=== PATIENT | male | born 1960 | race Caucasian/White ===

== ENCOUNTER 2020-06-11 07:32 | Outpatient (REF) | payer OTHER, SELFPAY | END 2020-06-11 07:33 | disposition home or self-care (01) | LOC: HO.LAB 07:32 | PROVIDERS: Visit Provider Internal Medicine | DX: Z20.822 Contact with and (suspected) exposure to COVID-19 (principal) | CPT/HCPCS: C9803; U0003; U0005 ==

== ENCOUNTER 2020-11-29 07:22 | Outpatient (REF) | payer OTHER, SELFPAY ==
[2020-11-29 07:52] LABS: Hematocrit 43.6 % (42-52); Hemoglobin 14.6 g/dl (14.0-18.0); Mean Corpuscular HGB Conc 33.5 g/dl (31.0-36.0); Mean Corpuscular Hemoglobin 29.7 pg (27.0-33.0); Mean Corpuscular Volume 88.6 fL (80-98); Mean Platelet Volume 9.5 fL (9.4-12.4); Platelet Count 280 X10*3/uL (160-400); Red Blood Count 4.92 X10*6/uL (4.60-5.80); Red Cell Distribution Width 12.7 % (11.0-16.0); White Blood Count 6.6 X10*3/uL (4.8-10.8)
[2020-11-29 08:16] LABS: Creatinine Urine 124.97 mg/dL; Microalbum/Creatinine Ratio Ur 18.4 ug/mg cr
[2020-11-29 08:39] LABS: Alanine Aminotransferase 36 U/L (0-40); Albumin Level 4.5 g/dL (3.5-5.0); Alkaline Phosphatase 52 U/L (39-117); Anion Gap 11 (12-20); Aspartate Amino Transferase 23 U/L (5-37); Bilirubin Direct 0.2 mg/dL (0.0-0.5); Bilirubin Total 0.4 mg/dL (0.0-1.0); Blood Urea Nitrogen 15 mg/dL (9-16); Calcium 9.8 mg/dL (8.4-10.2); Carbon Dioxide 28 mmol/L (22-29); Chloride 103 mmol/L (96-108); Cholesterol 211 mg/dL; Estimated Glomerular Filt Rate > 60; Glucose Random 156 mg/dL (60-115); HDL Cholesterol 46 mg/dL; LDL Cholesterol Calculated 148 mg/dl; Potassium 5.1 mmol/L (3.3-5.1); Sodium 137 mmol/L (135-145); Total Protein 7.6 g/dL (6.5-8.0); Triglycerides 89 mg/dL
[2020-11-29 08:55] LABS: Prostate Specific Antigen 3.88 ng/mL (<0.05-4.0)
== END 2020-11-29 07:23 | disposition home or self-care (01) ==
LOC: HO.LAB 07:22
PROVIDERS: PCP Internal Medicine Geriatric Medicine; Visit Provider Internal Medicine Geriatric Medicine
DX: Z00.00 Encounter for general adult medical examination without abnormal findings (principal); Z12.5 Encounter for screening for malignant neoplasm of prostate; E11.9 Type 2 diabetes mellitus without complications; H93.13 Tinnitus, bilateral; Z79.899 Other long term (current) drug therapy
CPT/HCPCS: 36415; 80048; 80061; 80076; 82043; 84153; 85027

== ENCOUNTER 2022-07-26 15:40 | Outpatient (REF) | payer OTHER, SELFPAY ==
--- NOTE | ~2022-07-26 | US_ITS ---
EXAMINATION: US SOFT TISSUE OF THE NECK CLINICAL INFORMATION: Small mass on right parotid gland x3 years. COMPARISON: None available. TECHNIQUE: Linear transducer grayscale and color Doppler examination of the right parotid gland. FINDINGS: A 1.5 x 1.1 x 1.4 cm cystic lesion in the right parotid gland. Small right cervical node which maintains normal hilar architecture not pathologically enlarged measuring 4 mm. US/US soft tiss head and/or neck IMPRESSION: 1. A 1.5 cm cystic lesion in the right parotid gland, for which differential considerations could include a sialocele, benign lymphoepithelial lesion, sequelae of Sjogren's disease or possibly a cystic Warthin's tumor. 2. Small cervical node which maintains normal hilar architecture not pathologically enlarged measuring 4 mm.
== END 2022-07-26 15:41 | disposition home or self-care (01) ==
LOC: HO.US 15:40
PROVIDERS: PCP Internal Medicine Geriatric Medicine; Visit Provider Internal Medicine Geriatric Medicine
DX: K11.8 Other diseases of salivary glands (principal)
CPT/HCPCS: 76536

== ENCOUNTER 2022-10-08 16:39 | Outpatient (REF) | payer OTHER, SELFPAY | END 2022-10-08 16:40 | disposition home or self-care (01) | LOC: HO.HHCL 16:39 | PROVIDERS: Visit Provider Internal Medicine Geriatric Medicine | DX: R30.0 Dysuria (principal) | CPT/HCPCS: 87086 ==

== ENCOUNTER 2023-03-15 10:18 | Outpatient (REF) | payer OTHER, SELFPAY ==
[2023-03-15 11:37] LABS: Appearance Urine Clear; Color Urine Yellow; Glucose Urine UA >=1000 mg/dL (Negative); Leukocyte Esterase Urine Negative (Negative); Nitrite Urine Negative (Negative); Specific Gravity - Urine >= 1.030 (1.005-1.025); UMIC TRIGGER UACC YES; Urine Blood Negative (Negative); Urine Ketones Negative (Negative); Urine Protein Negative (Neg-Trace)
[2023-03-15 11:44] LABS: Bacteria Urine None Seen (None Seen); Hyaline Casts Urine 0-2 /LPF (0-2); RBC Urine 0-2 /HPF (0-2); Squamous Epithelial Cell Urine 0-2 /HPF (0-2); WBC Urine 0-5 /HPF (0-5)
[2023-03-15 12:00] LABS: Anion Gap 10 (12-20); Blood Urea Nitrogen 10 mg/dL (9-16); Calcium 9.2 mg/dL (8.4-10.2); Carbon Dioxide 26 mmol/L (22-29); Chloride 107 mmol/L (96-108); Estimated Glomerular Filt Rate > 60; Glucose Random 146 mg/dL (60-115); Sodium 139 mmol/L (135-145)
== END 2023-03-15 10:19 | disposition home or self-care (01) ==
LOC: HO.HHCL 10:18
PROVIDERS: Visit Provider Internal Medicine Geriatric Medicine
DX: Z12.5 Encounter for screening for malignant neoplasm of prostate (principal); N40.1 Benign prostatic hyperplasia with lower urinary tract symptoms; N39.43 Post-void dribbling; E11.65 Type 2 diabetes mellitus with hyperglycemia
CPT/HCPCS: 36415; 80048; 81001; 84153

== ENCOUNTER 2023-08-27 07:15 | Outpatient (REF) | payer OTHER, SELFPAY ==
[2023-08-27 07:39] LABS: MANUAL DIFF FLAG NO
[2023-08-27 08:16] LABS: Basophils Percent Auto 0.5 % (0-2); Eosinophils Absolute Auto 0.2 X10*3/uL (0.0-0.4); Imm Gran Abs Auto 0.01 X10*3/uL (0.00-0.03); Imm Gran Pct Auto 0.2 % (0.0-0.4); Lymphocytes Absolute Auto 1.9 X10*3/uL (1.2-4.9); Lymphocytes Percent Auto 31.8 % (20-40); Mean Corpuscular HGB Conc 34.1 g/dl (31.0-36.0); Mean Corpuscular Hemoglobin 30.7 pg (27.0-33.0); Mean Platelet Volume 9.1 fL (9.4-12.4); Monocytes Absolute Auto 0.7 X10*3/uL (0.1-1.2); Monocytes Percent Auto 11.5 % (2-11); Neutrophils Absolute Auto 3.1 x10*3/uL (2.0-8.3); Platelet Count 268 X10*3/uL (160-400); Red Blood Count 4.89 X10*6/uL (4.60-5.80); Red Cell Distribution Width 12.9 % (11.0-16.0)
[2023-08-27 08:40] LABS: Creatinine Urine 112.31 mg/dL; Microalbum/Creatinine Ratio Ur 13.3 ug/mg cr (<30)
[2023-08-27 08:54] LABS: Alanine Aminotransferase 20 U/L (0-40); Albumin Level 4.3 g/dL (3.5-5.0); Alkaline Phosphatase 57 U/L (39-117); Anion Gap 12 (12-20); Aspartate Amino Transferase 20 U/L (5-37); Bilirubin Total 0.5 mg/dL (0.0-1.0); Blood Urea Nitrogen 16 mg/dL (9-16); Calcium 9.6 mg/dL (8.4-10.2); Carbon Dioxide 27 mmol/L (22-29); Chloride 107 mmol/L (96-108); Cholesterol 197 mg/dL (<200); Estimated Glomerular Filt Rate > 60; Glucose Random 120 mg/dL (60-115); HDL Cholesterol 56 mg/dL (>40); LDL Cholesterol Calculated 129 mg/dL (<100); Potassium 4.5 mmol/L (3.3-5.1); Sodium 141 mmol/L (135-145); Total Protein 7.3 g/dL (6.5-8.0); Triglycerides 62 mg/dL (<150)
[2023-08-27 09:09] LABS: TSH reflex Free T4 2.28 uIU/mL (0.32-4.0)
[2023-08-27 09:40] LABS: HIV AB/AG Nonreactive (Nonreactive); HIV Num 1 0.05 S/CO (0.00-0.99); ~HepC Num1 0.06 S/CO (0.00-0.79); ~Hepatitis C Antibody Nonreactive (Nonreactive)
== END 2023-08-27 07:16 | disposition home or self-care (01) ==
LOC: HO.LAB 07:15
PROVIDERS: PCP Internal Medicine Geriatric Medicine; Visit Provider Internal Medicine Geriatric Medicine
DX: E11.65 Type 2 diabetes mellitus with hyperglycemia (principal); R63.4 Abnormal weight loss; Z11.59 Encounter for screening for other viral diseases
CPT/HCPCS: 36415; 80053; 80061; 82043; 82570; 84443; 85025; 86803; 87389

== ENCOUNTER 2024-04-21 07:19 | Outpatient (REF) | payer OTHER, SELFPAY ==
--- OUTSIDE RECORDS SUMMARY | 2024-04-21 07:22 | XMS_ITS | Clinical Summary ---
Author Organization [employer] Address [address] [place] [address] [address] [place] [address] Care Team Providers Care Managing Consultant Name Role Phone Name, Chidi NIEVES Primary Care Provider [phone] Allergies No known active allergies Medications sildenafil (Viagra) 50 MG tabletIndicatio ns:Type 2 diabetes mellitus with hyperglycemia, without long-term current use of insulin (CMS/HCC),Erect ile dysfunction, unspecified erectile dysfunction type Take 1 tablet (50 mg) by mouth if needed each day for erectile dysfunction. 10 tablet 01/28/20 22 Active cetirizine (ZyrTEC) 10 MG tablet Take 10 mg by mouth in the morning. Active clotrimazole (Lotrimin) 1 % cream Apply topically every 12 (twelve) hours. 28 g 2 10/09/19 23 Active atorvastatin (Lipitor) 20 MG tabletIndicatio ns:Type 2 diabetes mellitus with hyperglycemia, without long-term current use of insulin (CMS/HCC) TAKE 1 TABLET BY MOUTH EVERY DAY 90 tablet 02/03/20 23 Active brimonidine (AlphaGAN P) 0.2 % ophthalmic solution PONGA DEJA GOTA EN LOS DOS OJOS DOS VECES AL D A 50 each 11 03/14/19 24 Active latanoprost (Xalatan) 0.005 % ophthalmic solution PONGA DEJA GOTA EN LOS DOS OJOS AL ACOSTARSE 25 each 11 03/14/19 24 Active dorzolamide-delon olol (Cosopt) 2-0.5 % ophthalmic solution PONGA DEJA GOTA EN LOS DOS OJOS DOS VECES AL AMANDEEP 30 mL 3 06/01/19 24 Active finasteride (Proscar) 5 MG tabletIndicatio ns:Benign prostatic hyperplasia with post-void dribbling Take 1 tablet (5 mg) by mouth Once per day. Do not crush, chew, or split. 30 tablet 11 12/12/19 24 Active tamsulosin (Flomax) 0.4 MG 24 hr capsuleIndicati ons:Benign prostatic hyperplasia with post-void dribbling Take 2 capsules (0.8 mg) by mouth Once per day. TAKE 2 CAPSULES BY MOUTH ONCE PER DAY. 180 capsule 3 12/13/19 24 Active FREESTYLE LITE test strip TEST ONCE DAILY 100 strip 2 12/29/19 Active Jardiance 25 MG TOME DEJA TABLETA TODOS LOS NASSAR EN LA MANANA 90 tablet 3 04/02/19 25 Active metFORMIN (Glucophage) 1000 MG tabletIndicatio ns:Type 2 diabetes mellitus with hyperglycemia, without long-term current use of insulin (CMS/HCC) TAKE 1 TABLET BY MOUTH WITH BREAKFAST AND EVENING MEAL 180 tablet 3 04/12/19 25 Active clotrimazole (Lotrimin) 1 % cream Apply topically 2 times daily for 28 days. 30 g 5 04/18/19 25 025 Active empagliflozin (Jardiance) 25 MG Take 1 tablet (25 mg) by mouth in the morning. 90 each 3 03/14/19 24 025 Discontinued metFORMIN (Glucophage) 1000 MG tabletIndicatio ns:Type 2 diabetes mellitus with hyperglycemia, without long-term current use of insulin (CMS/HCC) TAKE 1 TABLET BY MOUTH WITH BREAKFAST AND EVENING MEAL 180 tablet 3 04/08/19 24 025 Discontinued fluconazole (Diflucan) 150 MG tablet Take 1 tablet (150 mg) by mouth 1 (one) time for 1 dose. 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 10/27/2016 Pre-diabetes 03/21/2015 Encounters Date Type Department Care Team Description 04/17/2024 4:00 PM EDT Office Visit [facility] [address] [place] [address] NameChidi MD Type 2 diabetes mellitus with hyperglycemia, without long-term current use of insulin ([facility]) (Primary Dx); Balanitis; Pleomorphic adenoma of parotid gland 04/17/2024 Refill [facility] [address] [place] [address] Chidi Aguilar MD Type 2 diabetes mellitus with hyperglycemia, without long-term current use of insulin ([facility]); Erectile dysfunction, unspecified erectile dysfunction type 04/17/2024 Travel 04/11/2024 Refill [facility] [address] [place] [address] Chidi Aguilar MD Type 2 diabetes mellitus with hyperglycemia, without long-term current use of insulin ([facility]/HCC) 04/01/2024 Refill [facility] [address] [place] [address] Chidi Aguilar MD 02/14/2024 Telephone [facility] [address] [place] [address] Braden Diaz [place] mar recalls from Last 3 Months Immunizations Name Administration Dates Next Due Pfizer Covid-19 Vaccine 12+ 06/30/2020, Tdap 10/27/2016 Social History Tobacco Use Types Packs/Day Years Used Date Smoking Tobacco: Never Smokeless Tobacco: Never Tobacco Cessation:Counseling Given: Not Answered Alcohol Use Standard Drinks/Week Comments Never 0 (1 standard drink = 0.6 oz pur e alcohol) Depression Answer Date Recorded Patient Health Questionnaire-9 Score 0 03/14/2023 Patient Health Questionnaire-9 Score 0 03/14/2023 Last PHQ-9: Questionnaire Data Not on file 0 03/14/2023 Housing Stability Answer Date Recorded What is your housing situation today? I have caroline goode 03/14/[address] you li ve. Do you have problems with any of the following? None of the above 03/14/2023 Food Insecurity Answer Date Recorded Within the past 12 months, y ou worried that your food would run out before you got money to buy more: Never True 03/14/2023 Within the past 12 months,th e food you bought just didn't last and you didn't have enough money to get more: Never True 06/2023 Transportation Answer Date Recorded In the past 12 months, has l ack of transportation kept you from medical appts, meetings, work or from getting things needed for daily living? No 03/14/2023 Utilities Answer Date Recorded In the past 12 months, has t he [employer], gas, oil or water company threatened to shut off services in your home? No 03/14/2023 Depression Answer Date Recorded Patient Health Questionnaire-2 Score 0 03/14/2023 Sex and Gender Information Value Date Recorded Sex Assigned at Male 12/07/2021 10:32 AM EDT Legal Sex Male 10:32 AM EDT Gender Identity Male 12/07/2021 10:32 AM EDT Sexual Orientation Choose not to disclose 2021 10:32 AM EDT Last Filed Vital Signs Vital Sign Reading Time Taken Comments Blood Pressure 131/74 04/17/2024 4:09 PM EDT Pulse 66 04/17/2024 4:09 PM EDT Temperature 36.3 ??C (97.4 ??F) 04/17/2024 4:09 PM ED T Respiratory Rate 18 04/17/2024 4:09 PM EDT Oxygen Saturation 98% 04/17/2024 4:09 PM EDT Inhaled Oxygen Concentration - - Weight 70.9 kg (156 lb 3.2 oz) 04/17/2024 4:09 P M EDT Height 170.2 cm (5' 7 ) 08/23/2023 3:32 PM EDT Body Mass Index 24.46 08/23/2023 3:32 PM EDT Plan of Treatment Health Maintenance Due Date Last Done Comments CT Colonography 1961 FIT DNA/Cologuard 1961 FIT 1961 FOBT 1961 Sigmoidoscopy 1961 Pneumococcal Vaccine: 50+ Years (1 of 2 - PCV) 1980 Zoster Vaccines (1 of 2) 06/22/2011 Eye Exam 12/16/2022 06/15/2022 COVID-19 Vaccine ( season) 2023 06/30/2020, 06/08/2020 Influenza Vaccine (#1) 2023 Depression Screening 03/14/2024 03/14/2023, 03/14/19 Diabetes: Foot Exam 03/14/2024 03/14/2023, 03/14/2023, 03/14/2023, Additional history exists SDOH Screening 03/14/2024 03/14/2023 Diabetes: Hemoglobin A1C 07/18/2024 025, 12/12/2023, 08/23/2023, Additional history exists Alcohol/Substance Use Screening 08/22/2024 08/23/2023 Tobacco Screening 08/22/2024 08/23/2023 Diabetes: Urine Protein Screening 08/26/2024 08/27/2023, 07/13/2022, 06/24/2021, Additional history exists Lipid Panel 08/26/2024 08/27/2023, 03/0 07/2022, 06/24/2021 Colonoscopy 07/27/2025 07/28/2015 Colorectal Cancer Screening 07/27/2025 DTaP/Tdap/Td Vaccines (2 - Td or Tdap) 10/27/2026 10/27/2016 RSV Patients and Patients Aged 60 years or older (1 - 1-dose 75+ series) 2036 HIV Screening Completed 08/27/2023 Hepatitis C Screening Completed 08/27/2023 HIB Vaccines Aged Out No longer eligi ble based on patient's age to complete this topic HPV Vaccines Aged Out No longer eligi ble based on patient's age to complete this topic Hepatitis A Vaccines Aged Out No long er eligible based on patient's age to complete this topic Hepatitis B Vaccines Aged Out No long er eligible based on patient's age to complete this topic IPV Vaccines Aged Out No longer eligi ble based on patient's age to complete this topic Meningococcal Vaccine Aged Out No jared jeramy eligible based on patient's age to complete this topic RSV under 20 months Aged Out No longe r eligible based on patient's age to complete this topic Rotavirus Vaccines Aged Out No longer eligible based on patient's age to complete this topic Procedures Procedure Name Priority Date/Time Associated Diagnosis Comments POCT GLYCATED HEMOGLOBIN, TOTAL Routine 04/17/2024 4:12 PM EDT Type 2 diabetes mellitus with hyperglycemia, without long-term current use of insulin ([facility]/HCC) POCT GLUCOSE Routine 04/17/2024 4:08 PM EDT Type 2 diabetes mellitus with hyperglycemia, without long-term current use of insulin (CMS/HCC) HEPATITIS C AB W/REFL TO HCV RNA, QN, PCR Routine 08/27/2023 7:37 AM EDT Need for hepatitis C screening test HIV 1/2 ANTIGEN/ANTIBODY, FOURTH GENERATION W/RFL Routine 08/27/2023 7:37 AM EDT Weight loss LIPID PANEL, STANDARD Routine 08/27/2023 7:37 AM EDT Type 2 diabetes mellitus with hyperglycemia, without long-term current use of insulin (CMS/[facility]) Refusal of statin medication by patient Weight loss ALBUMIN, RANDOM URINE W/CREATININE Routine 08/27/2023 12:00 AM EDT Type 2 diabetes mellitus with hyperglycemia, without long-term current use of insulin ([facility]) Refusal of statin medication by patient Weight loss DIABETES EYE EXAM Routine 06/15/2022 COLONOSCOPY Routine 07/28/2015 from Last 3 Months or Most Recently Relevant to Health Maintenance Results * (ABNORMAL) POCT HGB A1C (04/17/2024 4:12 PM EDT) Hemoglobin A1C 7.4(A) 4.0 - 6.0 % QC Media Lot # [id number] Lot# Expiration Date [id number] Blood 04/17/2024 4:12 PM EDT us Chidi Name POINT OF CARE TEST ENTER/EDIT OR DERABLES Final Result * POCT Glucose (04/17/2024 4:08 PM EDT) Pathologist [facility] Glucose Blood, POC 105 60 - 200 mg/dL QC Media Lot # [id number] Lot# Expiration Date Blood Capillary blood specimen / Unknown 04/17/2024 4:08 PM EDT us Chidi Aguilar MD POINT OF CARE TEST ENTER/EDIT OR DERABLES Final Result * Hepatitis C Antibody with Reflex to HCV, RNA, Quantitative, Real-Time PCR (08/27/2023 7:37 AM EDT) [facility] Hepatitis C Antibody Nonreactive Nonreactive [facility] Comment:Antibodies to HCV no t detected; does not exclude early acuteHCV infection. Blood Venous blood specimen / Unknown 08/27/2023 7:37 AM EDT 08/27/2023 7:37 AM EDT us Chidi Aguilar MD LAB BLOOD ORDERABLES Final Resul t [facility] [address] [place] [address] [phone] * HIV-1/2 Antigen and Antibodies, Fourth Generation, with Reflexes (08/27/2023 7:37 AM EDT) [facility] HIV AB/AG Nonreactive Nonreactive [facility] Comment:HIV-1 p24 Ag and/or HIV-1/HIV-2 Ab not detected.A test result that is nonreactive does not exclude thepossibility of exposure to or infection with HIV-1 and/orHIV-2. Nonreactive results in this assay for individualswith prior exposure to HIV-1 and/or HIV-2 may be due toantigen and antibody levels that are below the limit ofdetection of this assay.[employer] HIV Ag/Ab Combo assay result andsupplemental assay results should be interpreted inconjunction with the patient's clinical presentation,history and other laboratory results. If the results areinconsistent with clinical evidence, additional testing issuggested to confirm the result. Blood Venous blood specimen / Unknown 08/27/2023 7:37 AM EDT 08/27/2023 7:37 AM EDT us Chidi Aguilar MD LAB BLOOD ORDERABLES Final Resul t Performing Organization Address [facility] de Phone Number [facility] [address] [place] [phone] * (ABNORMAL) Lipid Panel, Standard (08/27/2023 7:37 AM EDT) Triglycerides 62 <150 mg/dL [facility] Comment:Desirable Triglyceri de: less than 150 mg/dLBorderline High Triglyceride 150-199 mg/dLHigh Triglyceride: 200-499 mg/dLVery High Triglyceride: greater than or equal to 5OO mg/dL Cholesterol 197 <200 mg/dL [facility] Comment:Desirable Cholestero l: less than 200 mg/dLBorderline High Cholesterol: 200-239 mg/dLHigh Cholesterol: greater than 239 mg/dL LDL Cholesterol Calculated 129(H) <100 mg/dL [facility] Comment:Desirable LDL: less than 100 mg/dLNear Optimal/Above Optimal LDL: 110- 129 mg/dLBorderline High LDL: 130-159 mg/dLHigh LDL: 160-189 mg/dLVery High LDL: greater than or equal to 190 mg/dL HDL Cholesterol 56 >40 mg/dL [facility] Comment:Desirable HDL: great er than 40 mg/dL Note: This HDL assay may give artificially low results in patients with liver disease. Blood Venous blood specimen / Unknown 08/27/2023 7:37 AM EDT 08/27/2023 7:37 AM EDT us Chidi Aguilar MD LAB BLOOD ORDERABLES Final Resul t Performing Organization Address [facility] Co de Phone Number [facility] [address] [place] [address] [phone] * Albumin, Random Urine W/Creatinine (08/27/2023 12:00 AM EDT) Creatinine, Urine 112.31 mg/dL [facility] Microalbumin Urine 15.0 mg/L [facility] Microalbum Creatinine Ratio Ur 13.3 <30 ug/mg cr [facility] Comment:Albumin/Creatinine R atio Reference Ranges: Normal: < 30 ug/mg creatinine Microalbuminuria: 30 - 300 ug/mg creatinineClinical Albuminuria: > 300 ug/mg creatinine Urine (Urine, Random) 08/27/2023 08/27/2023 us Chidi Aguilar MD LAB URINE ORDERABLES Final Resul t Performing Organization Address City/State/[facility] Co de Phone Number [facility] [address] [place] [phone] * (ABNORMAL) Diabetes Eye Exam (06/15/2022) Eye Exam Abnormal(A) Normal us Chidi Aguilar MD HEALTH MAINTENANCE Final Result * Colonoscopy (07/28/2015) Colonoscopy performed Tess Goodman MD HEALTH MAINTENANCE Final Result from Last 3 Months or Most Recently Relevant to Health Maintenance Insurance [facility] Care Teams Managing Consultant Relationship Specialty Start Date End Date Name, MD hCidi [address] [place] [phone] PCP - General Family Medicine 10/13/16
--- OUTSIDE RECORDS SUMMARY | 2024-04-21 07:22 | XMS_ITS | Encounter Summary ---
Author Organization [employer] Address [address] [place] [address] [address] [place] [address] Care Team Providers Care Lamp Shade Assembler Name Role Phone Name, Chidi NIEVES Primary Care Provider [phone] Reason for Visit * Reason Comments Med Refill Encounter Details Date Type Department Care Team ([facility] st Contact Info) Description 03/08/2022 Refill [facility] [address] [place], [place] [phone] Name, MD Chidi [address] [place] [address] Social History Tobacco Use Types Packs/Day Years Used Date Smoking Tobacco: Never Smokeless Tobacco: Never Depression Answer Date Recorded Patient Health Questionnaire-9 Score 0 01/27/2022 Depression Answer Date Recorded Patient Health Questionnaire-2 Score 0 01/27/2022 Sex and Gender Information Value Date Recorded Sex Assigned at Male 12/07/2021 10:32 AM EDT Legal Sex Male 10:32 AM EDT Gender Identity Male 12/07/2021 10:32 AM EDT Sexual Orientation Choose not to disclose 2021 10:32 AM EDT COVID-19 Exposure Response Date Recorded In the last 10 days, have yo u been in contact with someone who was confirmed or suspected to have Coronavirus/COVID-19? No / Unsure 02/23/2022 2:34 PM EST documented as of this encounter Plan of Treatment Not on file documented as of this encounter Visit Diagnoses Not on filedocumented in this encounter Additional Health Concerns Assessment Noted Time PHQ-9 Depression Total Score: 0 01/28/20 22 3:27 PM EST documented as of this encounter Care Teams Lamp Shade Assembler Relationship Specialty Start Date End Date Name, MD Chidi [address] [place] [address] PCP - General Family Medicine 10/13/16 documented as of this encounter
--- OUTSIDE RECORDS SUMMARY | 2024-04-21 07:22 | XMS_ITS | Encounter Summary ---
Author Organization [employer] Address [address] [place] [address] 7 [place] [address] Care Team Providers Care Chief Librarian Circulation Department Name Role Phone Name, Chidi NIEVES Primary Care Provider [phone] Reason for Visit * Reason Comments Follow-up Encounter Details Date Type Department Care Team ([facility] st Contact Info) Description 04/17/2024 4:00 PM EDT Office Visit [facility] [address] [place] [address] [id number] Name, MD Chidi [address] [place] [address] Type 2 diabetes mellitus with hyperglycemia, without long-term current use of insulin ([facility]) (Primary Dx); Balanitis; Pleomorphic adenoma of parotid gland Social History Tobacco Use Types Packs/Day Years Used Date Smoking Tobacco: Never Smokeless Tobacco: Never Alcohol Use Standard Drinks/Week Comments Never 0 [...] the past 12 months, has t he electric, gas, oil or water company threatened to shut off services in your home? No 03/14/2023 Depression Answer Date Recorded Patient Health Questionnaire-2 Score 0 03/14/2023 Sex and Gender Information Value Date Recorded Sex Assigned at Male 12/07/2021 10:32 AM EDT Legal Sex Male 10:32 AM EDT Gender Identity Male 12/07/2021 10:32 AM EDT Sexual Orientation Choose not to disclose 2021 10:32 AM EDT documented as of this encounter Last Filed Vital Signs Vital Sign Reading [...] oz) 04/17/2024 4:09 P M EDT Height - - Body Mass Index 24.46 08/23/2023 3:32 PM EDT documented in this encounter Progress Notes * Chidi Aguilar MD - 04/17/2024 4:00 PM EDT Subjective Patient ID: Omar Garces is a 63 y.o. male who presents for Follow-up. Patient comes for a follow-up visit. The patient tells me he is using his medications regularly. Hedescribes redness and pruritus of the glans of the penis that is likely secondary to balanitis. He is treated with Jardiance for diabetes. The patient is monogamous with his for many years. Unfortunately he has lost his medical insurance coverage. He plans to renew his medical insurance in thecoming days. Review of Systems Constitutional: Negative for chills, fatigue and fever. HENT: Negative for sore throat. Respiratory: Negative for cough, chest tightness and shortness of breath. Cardiovascular: Negative for chest pain, palpitations and leg swelling. Gastrointestinal: Negative for abdominal pain and blood in stool. Visit Vitals BP 131/74 Pulse 66 Temp 97.4 ??F (36.3 ??C) (Temporal) Resp 18 Wt 156 lb 3.2 oz (70.9 kg) SpO2 98% BMI 24.46 kg/m?? Smoking Status Never BSA 1.83 m?? Objective Physical Exam Constitutional: Appearance: Normal appearance. Cardiovascular: Rate and Rhythm: Normal rate and regular rhythm. Heart sounds: No murmur heard. Pulmonary: Effort: Pulmonary effort is normal. No respiratory distress. Breath sounds: No wheezing, rhonchi or rales. Abdominal: Palpations: Abdomen is soft. Tenderness: There is no abdominal tenderness. Genitourinary: Comments: The patient has redness of the glans of the penis most consistent with Martina balanitis. Musculoskeletal: Right lower leg: No edema. Left lower leg: No edema. Neurological: Mental Status: He is alert. Lab Results Component Value Date HGBA1C 7.4 (A) 04/17/2024 HGBA1C 7.6 (A) 12/12/2023 HGBA1C 8.5 (A) 08/23/2023 HGBA1C 8.0 (A) 03/14/2023 HGBA1C 7.2 (A) 10/08/2022 HGBA1C 7.5 (H) 07/13/2022 HGBA1C 9.4 (A) 04/12/2022 HGBA1C 8.2 (A) 01/27/2022 HGBA1C 8.9 (A) 06/22/2021 Lab Results Component Value Date GLUCOSE 120 (H) 08/27/2023 NA 141 08/27/2023 K 4.5 08/27/2023 CO2 27 08/27/2023 CL 107 08/27/2023 BUN 16 08/27/2023 CREATININE 1.00 08/27/2023 Current Outpatient Medications on File Prior to Visit Medication Sig Dispense Refill atorvastatin (Lipitor) 20 MG tablet TAKE 1 TABLET BY MOUTH EVERY DAY 90 tablet 0 brimonidine (AlphaGAN P) 0.2 % ophthalmic solution PONGA DEJA GOTA EN LOS DOS OJOS DOS VECES AL D A 50 each 11 cetirizine (ZyrTEC) 10 MG tablet Take 10 mg by mouth in the morning. clotrimazole (Lotrimin) 1 % cream Apply topically every 12 (twelve) hours. 28 g 2 dorzolamide-timolol (Cosopt) 2-0.5 % ophthalmic solution PONGA DEJA GOTA EN LOS DOS OJOS DOS VECES AL AMANDEEP 30 mL 3 finasteride (Proscar) 5 MG tablet Take 1 tablet (5 mg) by mouth Once per day. Do not crush, chew, or split. 30 tablet 11 FREESTYLE LITE test strip TEST ONCE DAILY 100 strip 2 Jardiance 25 MG TOME DEJA TABLETA TODOS LOS NASSAR EN LA MANANA 90 tablet 3 latanoprost (Xalatan) 0.005 % ophthalmic solution PONGA DEJA GOTA EN LOS DOS OJOS AL ACOSTARSE 25 each 11 metFORMIN (Glucophage) 1000 MG tablet TAKE 1 TABLET BY MOUTH WITH BREAKFAST AND EVENING MEAL 180 tablet 3 sildenafil (Viagra) 50 MG tablet Take 1 tablet (50 mg) by mouth if needed each day for erectile dysfunction. 10 tablet 0 tamsulosin (Flomax) 0.4 MG 24 hr capsule Take 2 capsules (0.8 mg) by mouth Once per day. TAKE 2 CAPSULES BY MOUTH ONCE PER DAY. 180 capsule 3 [DISCONTINUED] metFORMIN (Glucophage) 1000 MG tablet TAKE 1 TABLET BY MOUTH WITH BREAKFAST AND EVENING MEAL 180 tablet 3 No current facility-administered medications on file prior to visit. Assessment/Plan Diagnoses and all orders for this visit: Type 2 diabetes mellitus with hyperglycemia, without long-term current use of insulin ([facility]) Comments: I did not recommend any medication changes today. I will treat him with topical clotrimazole and oral fluconazole for Martina balanitis. I asked him to call if not much better by next week. If symptoms persist I will discontinue the Jardiance. We discussed the importance of avoiding sweets and soda. I will order fasting blood work. I asked him to renew his insurance prior to doing the blood work so he does not end up with a large bill. 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 The mass is actually getting smaller.The patient has decided not to have to surgical treatment as recommended by ENT. Orders: - Comprehensive Metabolic Panel; Future - Lipid Panel, Standard; Future - Albumin, Random Urine W/Creatinine; Future Other orders - clotrimazole (Lotrimin) 1 % cream; Apply topically 2 times daily for 28 days. - fluconazole (Diflucan) 150 MG tablet; Take 1 tablet (150 mg) by mouth 1 (one) time for 1 dose. documented in this encounter Plan of Treatment Scheduled Orders Name Type Priority Associated Diagnoses Orde r Schedule Comprehensive Metabolic Panel Lab Routine Type 2 diabetes mellitus with hyperglycemia, without long-term current use of insulin (CMS/HCC) Pleomorphic adenoma of parotid gland Expected: 04/17/2024 (Approximate), Expires: 04/17/2025 Lipid Panel, Standard Lab Routine Type 2 diabetes mellitus with hyperglycemia, without long-term current use of insulin (CMS/HCC) Pleomorphic adenoma of parotid gland Expected: 04/17/2024 (Approximate), Expires: 04/17/2025 Albumin, Random Urine W/Creatinine Lab Routine Type 2 diabetes mellitus with hyperglycemia, without long-term current use of insulin (CMS/HCC) Pleomorphic adenoma of parotid gland Expected: 04/17/2024 (Approximate), Expires: 04/17/2025 documented as of this encounter Procedures Procedure Name Priority Date/Time Associated Diagnosis Comments POCT GLYCATED HEMOGLOBIN, TOTAL Routine 04/17/2024 4:12 PM EDT Type 2 diabetes mellitus with hyperglycemia, without long-term current use of insulin (CMS/HCC) POCT GLUCOSE Routine 04/17/2024 4:08 PM EDT Type 2 diabetes mellitus with hyperglycemia, without long-term current use of insulin (CMS/HCC) documented in this encounter Results * (ABNORMAL) POCT HGB A1C (04/17/2024 4:12 PM EDT) Hemoglobin A1C 7.4(A) 4.0 - 6.0 % QC Media Lot # [id number] Lot# Expiration Date [id number] Blood 04/17/2024 4:12 PM EDT Chidi Aguilar MD POINT OF CARE TEST ENTER/EDIT OR DERABLES Final Result * POCT Glucose (04/17/2024 4:08 PM EDT) Pathologist [facility] Glucose Blood, POC 105 60 - 200 mg/dL QC Media Lot # [id number] Lot# Expiration Date [id number] Blood Capillary blood specimen / Unknown 04/17/2024 4:08 PM EDT Chidi Aguilar MD POINT OF CARE TEST ENTER/EDIT OR DERABLES Final Result documented in this encounter Visit Diagnoses Diagnosis Type 2 diabetes mellitus with hyperglycemia, without long-term current use of insulin ([facility])- Primary Balanitis Balanoposthitis Pleomorphic adenoma of parotid gland documented in this encounter Additional Health Concerns Assessment Noted Time PHQ-9 Depression Total Score: 0 03/14/19 24 4:13 PM EST documented as of this encounter Care Teams Chief Librarian Circulation Department Relationship Specialty Start Date End Date Name, MD Chidi [address] [place] [address] PCP - General Family Medicine 10/13/16 documented as of this encounter
--- OUTSIDE RECORDS SUMMARY | 2024-04-21 07:22 | XMS_ITS | Encounter Summary ---
Author Organization [employer] Address [address] [facility] 7t [place] [address] Care Team Providers Care Mobile Crane Operator Name Role Phone Name, Chidi NIEVES Primary Care Provider [phone] Encounter Details Date Type Department Care Team (Latest Contact Info) Description 04/17/2024 Travel Social History Tobacco Use Types Packs/Day Years [...] AM EDT documented as of this encounter Plan of Treatment Not on file documented as of this encounter Visit Diagnoses Not on filedocumented in this encounter Additional Health Concerns Assessment Noted Time PHQ-9 Depression Total Score: 0 03/14/19 24 4:13 PM EST documented as of this encounter Care Teams Mobile Crane Operator Relationship Specialty Start Date End Date Name, MD Chidi [address] [place] [address] PCP - General Family Medicine 10/13/16 documented as of this encounter
--- OUTSIDE RECORDS SUMMARY | 2024-04-21 07:22 | XMS_ITS | Encounter Summary ---
Author Organization [employer] Address [address] [place] [address] 7 [place] [address] Care Team Providers Care Jigger Artisan Name Role Phone Name, Chidi NIEVES Primary Care Provider [phone] Encounter Details Date Type Department Care Team (Late st Contact Info) Description 06/25/2022 Abstract [facility] [address] [place], [place] [phone] Name, MD Chidi [address] [place] [address] Social History Tobacco Use Types Packs/Day Years [...] documented as of this encounter Care Teams Jigger Artisan Relationship Specialty Start Date End Date Name, MD Chidi [address] [place] [address] PCP - General Family Medicine 10/13/16 documented as of this encounter
--- OUTSIDE RECORDS SUMMARY | 2024-04-21 07:22 | XMS_ITS | Encounter Summary ---
Author Organization [employer] Address [address] [facility] 7t [place] [address] Care Team Providers Care Binder And Wrapper Packer Name Role Phone Name, Chidi NIEVES Primary Care Provider [phone] Reason for Visit * Reason Comments Med Refill Encounter Details Date Type Department Care Team ([facility] st Contact Info) Description 04/01/2024 Refill [facility] [address] [place], [place] [phone] Name, MD Chidi [address] [place] [address] Social History Tobacco Use Types Packs/Day Years [...] documented as of this encounter Care Teams Binder And Wrapper Packer Relationship Specialty Start Date End Date Name, MD Chidi [address] [place] [address] PCP - General Family Medicine 10/13/16 documented as of this encounter
--- OUTSIDE RECORDS SUMMARY | 2024-04-21 07:22 | XMS_ITS | Encounter Summary ---
Author Organization [employer] Address [address] [place] [address] 7 [place] [address] Care Team Providers Care Data Typist Name Role Phone Name, Chidi NIEVES Primary Care Provider [phone] Reason for Visit * Reason Onset Date Comments Prior Authorization 05/07/2022 Encounter Details Date Type Department Care Team ([facility] st Contact Info) Description 05/07/2022 Telephone [facility] [address] [place], [place] [phone] Name, MD Chidi [address] [place] [address] Prior Authorization Social History Tobacco Use Types Packs/Day Years [...] suspected to have Coronavirus/COVID-19? No / Unsure 04/12/2022 10:48 AM EST documented as of this encounter Miscellaneous Notes * Telephone Encounter - Marj Colon - 05/07/2022 11:40 AM EDT TC to [facility] pharmacy regarding message below. Jardiance doesn't require a PA just too soon to fill but insurance will pay for it tomorrow. left for patient with information. * Telephone Encounter - José Guerrero - 05/07/2022 10:56 AM EDT Tc from pt requesting a PA for medication Jardiance 10 mg. Stated pharmacy requesting the PA documented in this encounter Plan of Treatment Not on file documented as of this encounter Visit Diagnoses Not on filedocumented in this encounter Additional Health Concerns Assessment Noted Time PHQ-9 Depression Total Score: 0 01/28/20 22 3:27 PM EST documented as of this encounter Care Teams Data Typist Relationship Specialty Start Date End Date Name, MD Chidi [address] [place] [address] PCP - General Family Medicine 10/13/16 documented as of this encounter
--- OUTSIDE RECORDS SUMMARY | 2024-04-21 07:22 | XMS_ITS | Encounter Summary ---
Author Organization [employer] Address [address] [facility] 7t [place] [address] Care Team Providers Care Anode Rebuilder Name Role Phone Name, Chidi NIEVES Primary Care Provider [phone] Reason for Visit * Reason Comments Med Change Request Encounter Details Date Type Department Care Team ([facility] st Contact Info) Description 03/24/2022 Refill [facility] [address] [place], [place] [phone] Mauricio De Paz MD [address] [place] [address] Elevated blood pressure reading in office without diagnosis of hypertension Social History Tobacco Use Types Packs/Day Years [...] suspected to have Coronavirus/COVID-19? No / Unsure 03/24/2022 3:25 PM EST documented as of this encounter Miscellaneous Notes * Telephone Encounter - Marj Colon - 03/25/2022 12:00 PM EST Please send BP monitor script to [facility] pharmacy to be covered, thank you documented in this encounter Plan of Treatment Not on file documented as of this encounter Visit Diagnoses Diagnosis Elevated blood pressure reading in office without diagnosis of hypertension documented in this encounter Additional Health Concerns Assessment Noted Time PHQ-9 Depression Total Score: 0 01/28/20 22 3:27 PM EST documented as of this encounter Care Teams Anode Rebuilder Relationship Specialty Start Date End Date Name, MD Chidi [address] [place] [address] PCP - General Family Medicine 10/13/16 documented as of this encounter
--- OUTSIDE RECORDS SUMMARY | 2024-04-21 07:22 | XMS_ITS | Encounter Summary ---
Author Organization [employer] Address [address] [facility] 7 [place] [address] Care Team Providers Care Show Host Or Hostess Name Role Phone Name, Chidi NIEVES Primary Care Provider [phone] Reason for Visit * Reason Comments Med Refill Encounter Details Date Type Department Care Team ([facility] st Contact Info) Description 04/17/2024 Refill [facility] [address] [place], [place] [phone] Name, MD Chidi [address] [place] [address] Type 2 diabetes mellitus with hyperglycemia, without long-term current use of insulin ([facility]); Erectile dysfunction, unspecified erectile dysfunction type Social History Tobacco Use Types Packs/Day Years [...] your housing situation today? I have caroline ogode 03/14/[address] you li [...] as of this encounter Visit Diagnoses Diagnosis Type 2 diabetes mellitus with hyperglycemia, without long-term current use of insulin ([facility]) Erectile dysfunction, unspecified erectile dysfunction type documented in this encounter Additional Health Concerns Assessment Noted Time PHQ-9 Depression Total Score: 0 03/14/19 24 4:13 PM EST documented as of this encounter Care Teams Show Host Or Hostess Relationship Specialty Start Date End Date Name, MD Chidi [address] [place] [address] PCP - General Family Medicine 10/13/16 documented as of this encounter
--- OUTSIDE RECORDS SUMMARY | 2024-04-21 07:22 | XMS_ITS | Clinical Summary ---
Author Organization [employer] [facility] it Address [address] [place] [address] Care Team Providers Care Electronic Video Games Servicer Name Role Phone Unavailable Primary Care Provider Unavailabl e Social History Tobacco Use Types Packs/Day Years Used Date Smoking Tobacco: Never Assessed Sex and Gender Information Value Date Recorded Sex Assigned at Not on file Legal Sex Male 9:06 PM EST Gender Identity Not on file Sexual Orientation Not on file Plan of Treatment Health Maintenance Due Date Last Done Comments DTaP,Tdap,and Td Vaccines (1 - Tdap) 1980 Pneumococcal Vaccine: 50+ Ye ars (1 of 1 - PCV) 06/22/2011 Zoster Vaccines (1 of 2) 06/22/2011 Cholesterol Screening (Lipid Panel) 03/04/2023 Colorectal Cancer Screening: Colonoscopy 03/04/2023 Depression Screening 03/04/2023 HIV Screening 03/04/2023 Hepatitis C Screening 03/04/2023 Social Influencers of Health Screening 03/04/2023 COVID-19 Vaccine ( - 2023-2 5 season) 2023 Influenza Vaccine (#1) 2023 RSV Immunization Patients 60 + Years Old (1 - 1-dose 75+ series) 2036 HIB Vaccines Aged Out No longer eligi [...] on patient's age to complete this topic MMR Vaccines Aged Out No longer eligi ble based on patient's age to complete this topic Meningococcal ACWY Vaccine Aged Out N o longer eligible based on patient's age to complete this topic Meningococcal B Vacine Aged Out No lo nger eligible based on patient's age to complete this topic Pneumococcal Vaccine: Pediat rics (0 to 5 Years) and At-Risk Patients (6 to 64 Years) Aged Out No longer eligible b ased on patient's age to complete this topic RSV Immunization Patients Un cooper 20 months Aged Out No longer eligible b ased on patient's age to complete this topic Varicella Vaccines Aged Out No longer eligible based on patient's age to complete this topic
--- OUTSIDE RECORDS SUMMARY | 2024-04-21 07:22 | XMS_ITS | Encounter Summary ---
Author Organization [employer] Address [address] [facility] 7t [place] [address] Care Team Providers Care Data Entry Operator Name Role Phone Name, Chidi NIEVES Primary Care Provider [phone] Reason for Visit * Reason Comments Med Refill Encounter Details Date Type Department Care Team ([facility] st Contact Info) Description 04/11/2024 Refill [facility] [address] [place], [place] [phone] Name, MD Chidi [address] [place] [address] Type 2 diabetes mellitus with hyperglycemia, without long-term current use of insulin ([facility]) Social History Tobacco Use Types Packs/Day Years [...] hyperglycemia, without long-term current use of insulin ([facility]) documented in this encounter Additional Health Concerns Assessment Noted Time PHQ-9 Depression Total Score: 0 03/14/19 24 4:13 PM EST documented as of this encounter Care Teams Data Entry Operator Relationship Specialty Start Date End Date Name, MD Chidi [address] [place] [address] PCP - General Family Medicine 10/13/16 documented as of this encounter
[2024-04-21 08:00] LABS: Appearance Urine Clear; Color Urine Yellow; Glucose Urine UA >=1000 mg/dL (Negative); Leukocyte Esterase Urine Negative (Negative); Nitrite Urine Negative (Negative); PH 5.5 (5.0-9.0); Specific Gravity - Urine >= 1.030 (1.005-1.025); UMIC TRIGGER UACC YES; Urine Blood Negative (Negative); Urine Ketones Negative (Negative); Urine Protein Negative (Neg-Trace)
[2024-04-21 08:05] LABS: Bacteria Urine None Seen (None Seen); Hyaline Casts Urine 0-2 /LPF (0-2); RBC Urine 0-2 /HPF (0-2); Squamous Epithelial Cell Urine 0-2 /HPF (0-2); WBC Urine 0-5 /HPF (0-5)
[2024-04-21 08:31] LABS: Creatinine Urine 94.83 mg/dL; Microalbum/Creatinine Ratio Ur 13.7 ug/mg cr (<30)
[2024-04-21 08:45] LABS: Alanine Aminotransferase 23 U/L (0-40); Albumin Level 4.2 g/dL (3.5-5.0); Anion Gap 12 (12-20); Aspartate Amino Transferase 24 U/L (5-37); Bilirubin Total 0.4 mg/dL (0.0-1.0); Blood Urea Nitrogen 13 mg/dL (9-16); Calcium 9.3 mg/dL (8.4-10.2); Carbon Dioxide 26 mmol/L (22-29); Chloride 109 mmol/L (96-108); Cholesterol 195 mg/dL (<200); Estimated Glomerular Filt Rate > 60; Glucose Random 133 mg/dL (60-115); HDL Cholesterol 53 mg/dL (>40); LDL Cholesterol Calculated 130 mg/dL (<100); Potassium 4.7 mmol/L (3.3-5.1); Sodium 142 mmol/L (135-145); Total Protein 7.8 g/dL (6.5-8.0); Triglycerides 64 mg/dL (<150)
[2024-04-21 08:53] LABS: Prostate Specific Antigen 2.06 ng/mL (<0.05-4.0)
[2024-04-21 09:03] LABS: Alkaline Phosphatase 59 U/L (39-117)
== END 2024-04-21 07:20 | disposition home or self-care (01) ==
LOC: HO.LAB 07:19
PROVIDERS: PCP Internal Medicine Geriatric Medicine; Visit Provider Internal Medicine Geriatric Medicine
DX: N40.1 Benign prostatic hyperplasia with lower urinary tract symptoms (principal); N39.43 Post-void dribbling; E11.65 Type 2 diabetes mellitus with hyperglycemia; D11.0 Benign neoplasm of parotid gland
CPT/HCPCS: 36415; 80053; 80061; 81001; 82043; 82570; 84153

== ENCOUNTER 2025-01-04 07:20 | Outpatient (REF) | payer OTHER, SELFPAY ==
--- OUTSIDE RECORDS SUMMARY | 2025-01-04 07:23 | XMS_ITS | Clinical Summary ---
Author Organization [employer] [facility] ity Address [address] [place] [address] Care Team Providers Care Director Of Intercollegiate Athletics Name Role Phone Unavailable Primary Care Provider Unavailabl e Social History Tobacco Use Types Packs/Day Years Used Date Smoking Tobacco: Never Assessed Sex and Gender Information Value Date Recorded Sex Assigned at Not on file Legal Sex Male 9:06 PM EST Gender Identity Not on file Sexual Orientation Not on file Plan of Treatment Health Maintenance Due Date Last Done Comments Colorectal Cancer Screening: Colonoscopy 1961 DTaP,Tdap,and Td Vaccines (1 - Tdap) 1980 Pneumococcal Vaccine: 50+ Ye ars (1 of 1 - PCV) 06/22/2011 Zoster Vaccines (1 of 2) 06/22/2011 Cholesterol Screening (Lipid Panel) 03/04/2023 HIV Screening 03/04/2023 Hepatitis C Screening 03/04/2023 Social Influencers of Health Screening 03/04/2023 Depression Screening 02/08/2024 COVID-19 Vaccine (1 - 2024-2 6 season) 2024 Influenza Vaccine (#1) 2024 RSV Immunization Adult Patie nts (1 - 1-dose 75+ series) 2036 HIB [...] age to complete this topic Meningococcal B Vaccine Aged Out No l onger eligible based on patient's age to complete this topic RSV Immunization Patients Un cooper 20 months Aged Out No longer eligible b ased on patient's age to complete this topic Varicella Vaccines Aged Out No longer eligible based on patient's age to complete this topic
--- OUTSIDE RECORDS SUMMARY | 2025-01-04 07:23 | XMS_ITS | Encounter Summary ---
Author Organization [facility] Address [address] [place] [address] Phone Care Team Providers Care Legal Recovery Specialist Name Role Phone Name, Chidi NIEVES Primary Care Provider [phone] Encounter Details Date Type Department Care Team ([facility] st Contact Info) Description 09/13/2024 Ophth Exam [facility] Emergency Department [address] [place] [address] Clifton Cisneros MD [address] [place] [address] [email or web address] Social History Tobacco Use Types Packs/Day Years Used Date Smoking Tobacco: Never Passive Smoke Exposure: Never Smokeless Tobacco: Never Alcohol Use Standard Drinks/Week Comments Not Currently 0 (1 standard drink = 0.6 oz pur e alcohol) Education Answer Date Recorded Are you interested in more education? Not on carroll e 09/13/2024 Are you concerned about learning? Not on file 09/13/2024 No 09/13/2024 No 09/13/2024 Food Answer Date Recorded Within the past 6 months we worried whether our food would run out before we got money to buy more. Never True 09/13/2024 Within the past 6 months the food we bought just didn't last and we didn't have enough money to get more. Never True Residential Stability Answer Date Recor ded What is your housing situation today? I have caroline sing 09/13/2024 How many times have you move d in the past 12 months? Zero (I did not move) 09/13/2024 Paying for Meds Answer Date Recorded Do you have trouble paying for medicines? No 09/13/2024 Paying Utility Bills Answer Date Record ed Do you have trouble paying your heating or elect ricity bill? No 09/13/2024 Transportation Answer Date Recorded Has the lack of transportati on kept you from medical appointments or from getting medications? No 09/13/2024 Digital Access Answer Date Recorded No 09/13/2024 Yes 09/13/2024 Do you have reliable internet access at home? Ye s 09/13/2024 Do you have a device (e.g., phone, tablet, computer) with a working camera? Yes 09/13/2024 Intimate Partner Violence Answer Date R ecorded Are you denied basic needs s uch as food, clothing, or medical care? No 09/13/2024 In the past 12 months have y ou been in a relationship with a person who hurts, threatens, or tries to control you? No 09/13/2024 Are you denied basic needs s uch as food, clothing, or medical care? No 09/13/2024 In the past 12 months have y ou been in a relationship with a person who hurts, threatens, or tries to control you? No 09/13/2024 Sex and Gender Information Value Date Recorded Sex Assigned at Male 09/13/2024 7:07 PM EDT Legal Sex Male 5:43 PM EDT Gender Identity Male 09/13/2024 7:07 PM EDT Sexual Orientation Straight 09/13/2024 7: 07 PM EDT documented as of this encounter Functional Status * Calculated C-SSRS Risk Score (Lifetime/Recent) Answer Date of Assessment Author No Risk Indicated 09/13/2024 6:53 PM EDT Dafne Alatorre RN * Lane Suicide Severity Rating Scale (Screener/Recent Self-Report) Question Answer Date of Assessment Author 1. Wish to be (Past 1 Month) No 09/13/2024 6:53 PM EDT Regina Kong, OTONIEL 2. Non-Specific Active Suicidal Thoughts (Past 1 Month) No 09/13/2024 6:53 PM EDT Regina Kong, OTONIEL 6. Suicidal Behavior (Lifetime) No 09/13/2024 6:53 PM EDT Regina Kong RN documented as of this encounter Plan of Treatment Upcoming Encounters Date Type Department Care Team (Late st Contact Info) Description 04/12/2025 9:30 AM EST Appointment [address] [id number] Yadira Arce MD [address] [place] [phone] [email or web address] 04/12/2025 10:30 AM EST Office Visit [address] [address] Yadira Arce MD [address] [place] [phone] [email or web address] documented as of this encounter Visit Diagnoses Not on filedocumented in this encounter Care Teams Legal Recovery Specialist Relationship Specialty Start Date End Date Name, MD Chidi [address] [place] [address] PCP - General Internal Medicine 09/13/24 documented as of this encounter Additional Source Comments The information contained in this document represents components of the legal health record. It is not the complete legal health record.[facility]
--- OUTSIDE RECORDS SUMMARY | 2025-01-04 07:24 | XMS_ITS | Clinical Summary ---
Author Organization [facility] Address [address] [place] [address] Phone Care Team Providers Care Insulation Applicator Name Role Phone Name, Chidi NIEVES Primary Care Provider [phone] Allergies No known active allergies Medications acetaZOLAMIDE (DIAMOX) 250 MG tablet Take 250 mg by mouth 3 (three) times a day. 5 Active dorzolamide-delon oloL (COSOPT) 22.3-6.8 mg/mL ophthalmic solution Place 1 drop into the right eye 2 (two) times a day. 4 Active brimonidine (ALPHAGAN P) 0.1 % Drop Place 1 drop into each eye 2 (two) times a day. Active latanoprost (XALATAN) 0.005 % ophthalmic solution Place 1 drop into each eye nightly at bedtime. Active prednisoLONE acetate (PRED FORTE) 1 % ophthalmic suspension Place 1 drop into the right eye 2 (two) times a day. Active finasteride (PROSCAR) 5 mg tablet TOME 1 TABLETA POR V A ORAL TODOS LOS D Active empagliflozin (JARDIANCE) 25 mg tablet Take 25 mg by mouth. 5 Active metFORMIN (GLUCOPHAGE) 1000 MG tablet TAKE 1 TABLET BY MOUTH WITH BREAKFAST AND EVENING MEAL 5 Active tamsulosin (FLOMAX) 0.4 mg Cap TOME 1 C PSULA POR V A ORAL TODOS LOS D AL ACOSTARSE Active Encounters Date Type Department Care Team Description 10/10/[address] [address] Yadira Arce MD 10/04/2024 8:30 AM EDT Office Visit [facility] [address] [address] Yadira Skinner MD Uveitic glaucoma of right eye, severe stage (Primary Dx); Nuclear sclerotic cataract, right from Last 3 Months Family History Medical History Relation Comments Glaucoma Maternal Uncle Glaucoma Mother Relation Status Comments Maternal Uncle Mother Social History Tobacco Use Types Packs/Day Years Used Date Smoking Tobacco: Never Passive Smoke Exposure: Never Smokeless Tobacco: Never Tobacco Cessation:Counseling Given: Not Answered Alcohol Use Standard Drinks/Week Comments Not Currently [...] housing situation today? I have caroline goode 09/13/2024 How many times have you move [...] Orientation Straight 09/13/2024 7: 07 PM EDT Last Filed Vital Signs Vital Sign Reading Time Taken Comments Blood Pressure 145/82 09/13/2024 6:51 PM EDT Pulse 61 09/13/2024 6:51 PM EDT Temperature 36.8 C (98.2 F) 09/13/2024 6:51 PM EDT Respiratory Rate 18 09/13/2024 6:51 PM EDT Oxygen Saturation 100% 09/13/2024 6:51 PM EDT Inhaled Oxygen Concentration - - Weight 71.2 kg (157 lb) 09/13/2024 6:51 PM EDT Height 170.2 cm (5' 7 ) 09/13/2024 6:51 PM EDT Body Mass Index 24.59 09/13/2024 6:51 PM EDT Plan of Treatment Upcoming Encounters Date Type Department Care Team (Late st Contact Info) Description 04/12/2025 9:30 AM EST Appointment [address] [address] Yadira Arce MD [address] [place] [phone] [email or web address] 04/12/2025 10:30 AM EST Office Visit [address] [address] Yadira Arce MD [address] [place] [phone] [email or web address] Health Maintenance Due Date Last Done Comments CREATININE LEVEL 1961 DEPRESSION SCREENING 1973 HEPATITIS C SCREENING 06/22/1979 HIV ONE-TIME SCREENING (18-6 5 YEARS) 06/22/1979 COLOGUARD 2006 COLONOSCOPY 2006 COLORECTAL CANCER SCREENING 2006 FIT TEST 2006 FOBT 2006 SIGMOIDOSCOPY 2006 VIRTUAL COLONOSCOPY 2006 PNEUMOCOCCAL VACCINES (50+ y ears) (1 of 1 - PCV) 06/22/2011 RSV VACCINE (1 - Risk 50-74 years 1-dose series) 06/22/2011 ZOSTER VACCINES (1 of 2) 06/22/2011 INFLUENZA VACCINE (#1) 2024 COVID-19 VACCINE (1 - 2024-2 6 season) 2024 Adult Td,Tdap Booster 10/27/2026 10/27/2016 LIPID PANEL 04/21/2029 04/21/2024 SMOKING STATUS SCREENING (On ce After 26 Yrs) Completed 10/04/2024 HEPATITIS A VACCINES Aged Out No long er eligible based on patient's age to complete this topic HIB VACCINES Aged Out No longer eligi ble based on patient's age to complete this topic MENINGOCOCCAL VACCINES (ACWY) Aged Out No longer eligible based on patient's age to complete this topic MENINGOCOCCAL VACCINES (B) Aged Out N o longer eligible based on patient's age to complete this topic Medical Devices Not on file Insurance [facility] NON NSPG PCP [employer] [place] [employer] NON NSPG PCP [employer] NON NSPG PCP SILVER [employer]ITY CONNECTORCARE [place] NON NSPG PCP SILVER [employer]ITY CONNECTORCARE [place] NON NSPG PCP S[place] CONNE[place]ARE [place] NON NSPG PCP SILVER [employer]ARITY CONNECTORCARE Care Teams Insulation Applicator Relationship Specialty Start Date End Date Name, MD Chidi [address] [place] [id number] PCP - General Internal Medicine 09/13/24 Additional Source Comments The information contained in this document represents components of the legal health record. It is not the complete legal health record.[facility]
[2025-01-04 07:38] LABS: MANUAL DIFF FLAG NO
[2025-01-04 07:51] LABS: Hematocrit 45.6 % (42.0-52.0); Hemoglobin 15.1 g/dl (14.0-18.0); Imm Gran Abs Auto 0.02 X10*3/uL (0.00-0.03); Imm Gran Pct Auto 0.3 % (0.0-0.4); Lymphocytes Absolute Auto 2.0 X10*3/uL (1.2-4.9); Mean Corpuscular HGB Conc 33.1 g/dl (31.0-36.0); Mean Corpuscular Hemoglobin 30.4 pg (27.0-33.0); Mean Corpuscular Volume 91.9 fL (80.0-98.0); NRBC Abs Auto 0.000 X10*3/uL (0.0-0.012); NRBC Pct Auto 0.0 /100WBC (0.0-0.2); Platelet Count 287 X10*3/uL (160-400); Red Blood Count 4.96 X10*6/uL (4.60-5.80); White Blood Count 7.3 X10*3/uL (4.8-10.8)
[2025-01-04 07:58] LABS: Hemoglobin A1C 152.5618 umol/L
[2025-01-04 08:13] LABS: Alanine Aminotransferase 19 U/L (0-40); Albumin Level 4.5 g/dL (3.5-5.0); Alkaline Phosphatase 68 U/L (39-117); Anion Gap 12 (12-20); Aspartate Amino Transferase 21 U/L (5-37); Blood Urea Nitrogen 12 mg/dL (9-16); Calcium 9.5 mg/dL (8.4-10.2); Carbon Dioxide 28 mmol/L (22-29); Chloride 108 mmol/L (96-108); Cholesterol 218 mg/dL (<200); Estimated Glomerular Filt Rate > 60; HDL Cholesterol 56 mg/dL (>40); Potassium 4.8 mmol/L (3.3-5.1); Sodium 143 mmol/L (135-145); Total Protein 7.6 g/dL (6.5-8.0); Triglycerides 95 mg/dL (<150)
[2025-01-04 08:35] LABS: Prostate Specific Antigen 1.67 ng/mL (<0.05-4.0)
== END 2025-01-04 07:21 | disposition home or self-care (01) ==
LOC: HO.LAB 07:20
PROVIDERS: Visit Provider Internal Medicine Geriatric Medicine
DX: Z00.00 Encounter for general adult medical examination without abnormal findings (principal); N40.0 Benign prostatic hyperplasia without lower urinary tract symptoms; E11.65 Type 2 diabetes mellitus with hyperglycemia; N39.43 Post-void dribbling
CPT/HCPCS: 36415; 80053; 80061; 83036; 84153; 85025